=== PATIENT | female | born 1955 | race Caucasian/White ===

== ENCOUNTER 2017-11-26 21:57 | Observation (INO) | payer BC ==
[~2017-11-26] VITALS: Ht 175.3 cm; Wt 90.7 kg
[~2017-11-26 21:57] MED LIST: ATEN50TA PO; CALC600T10; CLON0.5T3 PO; DIAZ5TAB49; IBP200T; LEVO150T PO; LEVO250T11 PO; LOSA50TA36 PO; MULT1TAB63; PHEN-640 PO; PRAV20TA3 PO; TRIA1TAB PO
--- OUTSIDE RECORDS SUMMARY | 2017-11-26 22:03 | XMS REPORT ---
Author Author TAISHA COLLADO [facility] Address [address] [place] [address] Care Team Providers Care Chyron Operator Name Role Phone TAISHA COLLADO Unavailable PROBLEMS Type Condition ICD9-CM Code EQU50-VJ Code Onset Dates Condition Status SNOMED Code Problem Chronic right-sided low back pain with right-sided sciatica M54.41 Active 019558535 Problem Pain in right hand M79.641 Active 96619647 Problem Pain of left hand M79.642 Active 170430219969532 Problem Essential hypertension with goal blood pressure less than 130\/85 I10 Active 00499796 Problem Acquired hypothyroidism E03.9 Active 777352845 Problem History of bladder cancer Z85.51 Active 619674921 Problem Tobacco abuse Z72.0 Active 90760834 Problem Mixed hyperlipidemia E78.2 Active 306712036 Problem Anxiety F41.9 Active 53286112 ALLERGIES Unknown Allergies SOCIAL HISTORY No smoking Hx information available PLAN OF CARE VITAL SIGNS MEDICATIONS Unknown Medications RESULTS No Results PROCEDURES No Known procedures IMMUNIZATIONS No Known Immunizations
--- OUTSIDE RECORDS SUMMARY | 2017-11-26 22:03 | XMS REPORT ---
Author Author LAURE NIETO Organization [facility] Address [address] [place] [address] Care Team Providers Care Collections Manager Name Role Phone LAURE NIETO Unavailable PROBLEMS Type Condition ICD9-CM Code ANU20-UQ Code Onset Dates Condition Status SNOMED Code Problem Essential hypertension with goal blood pressure less than 130\/85 I10 Active 26117640 Problem Pain of left hand M79.642 Active 850098699598066 Problem Chronic right-sided low back pain with right-sided sciatica M54.41 Active 260765592 Problem Mixed hyperlipidemia E78.2 Active 724301538 Problem History of bladder cancer Z85.51 Active 183038883 Problem Essential hypertension I10 Active 61021216 Problem Chronic obstructive pulmonary disease with (acute) exacerbation J44.1 Active 769977713 Problem Anxiety F41.9 Active 05482238 Problem Acquired hypothyroidism E03.9 Active 869115398 Problem Pain in right hand M79.641 Active 98351039 Problem Tobacco abuse Z72.0 Active 66015858 ALLERGIES No Known Allergies SOCIAL HISTORY Never Assessed PLAN OF CARE Activity Details Follow Up [address] Nieto for BP f/u with labs Reason: VITAL SIGNS Height 69 in 2017-02-11 Weight 194.6 lbs 2017-02-11 Temperature 98.6 degrees Fahrenheit 2017-02-11 Heart Rate 66 bpm 2017-02-11 Respiratory Rate 18 2017-02-11 BMI 28.73 kg/m2 2017-02-11 Blood pressure systolic 126 mmHg 2017-02-11 Blood pressure diastolic 77 mmHg 2017-02-11 MEDICATIONS Medication Instructions Dosage Frequency Start Date End Date Duration Status Zofran ODT 4 MG Orally every 8 hrs prn 1 tablet on the tongue and allow to dissolve Jun, 03 days Active Pravastatin Sodium 40 mg Orally Once a day 1 tablet 24h Active Losartan Potassium 50 mg Orally 2 times a day 1 tablet 12h Active Ibuprofen 800 MG Orally Three times a day 1 tablet 8h Active Maxzide 75-50 MG Orally Once a day 1 tablet in the morning 24h Active Atenolol 50 mg Orally Once a day 1 tablet 24h Active Levothyroxine Sodium 150 MCG Orally Once a day- Must be seen, No further refills given 1 tablet Active RESULTS No Results PROCEDURES No Known procedures IMMUNIZATIONS No Known Immunizations MEDICAL (GENERAL) HISTORY Type Description Date Medical History HTN Medical History anxiety Medical History bladder cancer treated with surgery by Dr Burns Medical History Hypothyroidism Medical History Hyperlipidemia Surgical History tonsillectomy and adenoidectomy Surgical History appendectomy Surgical History tubal ligation Surgical History hysterectomy Surgical History bladder surgery--Tumor removal Hospitalization History Appendectomy Hospitalization History labor and delivery Hospitalization History Bladder tumor removal
--- OUTSIDE RECORDS SUMMARY | 2017-11-26 22:03 | XMS REPORT ---
Author Author TAISHA COLLADO [facility] Address [address] [place] [address] Care Team Providers Care Drugless Doctor Name Role Phone TAISHA COLLADO Unavailable PROBLEMS Type Condition ICD9-CM Code CRF79-LX Code Onset Dates Condition Status SNOMED Code Problem Chronic right-sided low back pain with right-sided sciatica M54.41 Active 761216658 Problem Pain in right hand M79.641 Active 05455275 Problem Pain of left hand M79.642 Active 245079685534305 Problem Essential hypertension with goal blood pressure less than 130\/85 I10 Active 60937860 Problem Acquired hypothyroidism E03.9 Active 823222077 Problem History of bladder cancer Z85.51 Active 126927426 Problem Tobacco abuse Z72.0 Active 09632399 Problem Mixed hyperlipidemia E78.2 Active 586980878 Problem Anxiety F41.9 Active 21681408 ALLERGIES Unknown Allergies SOCIAL HISTORY No smoking Hx information available PLAN OF CARE VITAL SIGNS MEDICATIONS Unknown Medications RESULTS No Results PROCEDURES No Known procedures IMMUNIZATIONS No Known Immunizations
--- OUTSIDE RECORDS SUMMARY | 2017-11-26 22:03 | XMS REPORT ---
Author Author TAISHA COLLADO Organization [employer] Address Unknown Phone Unavailable Care Team Providers Care Welding Machine Operator Electro Gas Name Role Phone TAISHA COLLADO CP Unavailable Allergies No Known Allergies Problems Problem Type Condition Code Onset Dates Condition Status Problem Pain of left hand M79.642 Active Problem Chronic right-sided low back pain with right-sided sciatica M54.41 Active Problem Acquired hypothyroidism E03.9 Active Problem Mixed hyperlipidemia E78.2 Active Problem Essential hypertension with goal blood pressure less than 130\/85 I10 Active Problem Tobacco abuse Z72.0 Active Problem Pain in right hand M79.641 Active Problem Anxiety F41.9 Active Problem History of bladder cancer Z85.51 Active Medications Medication Code System Code Instructions Start Date End Date Status Dosage Levothyroxine Sodium [facility] [address]-36 150 MCG Orally Once a day- Must be seen, No further refills given 1 tablet Results No Known Results Summary Purpose [employer] Submission
--- OUTSIDE RECORDS SUMMARY | 2017-11-26 22:03 | XMS REPORT ---
Author Author LAURE ABAD Organization [facility] Address [address] [place] [address] Care Team Providers Care Hogshead Stock Clerk Name Role Phone LAURE ABAD Unavailable PROBLEMS Type Condition ICD9-CM Code BUI85-UW Code Onset Dates Condition Status SNOMED Code Problem Essential hypertension with goal blood pressure less than 130\/85 I10 Active 43526706 Problem Pain of left hand M79.642 Active 987918862836185 Problem Chronic right-sided low back pain with right-sided sciatica M54.41 Active 508099009 Problem Mixed hyperlipidemia E78.2 Active 290015005 Problem History of bladder cancer Z85.51 Active 264837479 Problem Essential hypertension I10 Active 37861268 Problem Chronic obstructive pulmonary disease with (acute) exacerbation J44.1 Active 846887485 Problem Anxiety F41.9 Active 14743249 Problem Acquired hypothyroidism E03.9 Active 470597036 Problem Pain in right hand M79.641 Active 50890119 Problem Tobacco abuse Z72.0 Active 61533354 ALLERGIES No Information SOCIAL HISTORY Never Assessed PLAN OF CARE VITAL SIGNS MEDICATIONS Unknown [...]
--- OUTSIDE RECORDS SUMMARY | 2017-11-26 22:04 | XMS REPORT | Continuity of Care Document ---
Author Author [facility] Organization [facility] Address Unknown Phone Unavailable Allergies Active Description Code Type Severity Reaction Onset Reported/Identified Relationship to Patient Clinical Status Yes NKANo Known Allergies NKA Miscellaneous Allergy Unknown N/A 10/20/2006 Medications There is no data. Problems Date Dx Coded Attending Type Code Diagnosis Diagnosed By 11/15/2015 CORIE ZHAOVIKI Bermudez DOOR FRAME BUILDER Ot D18.03 11/15/2015 CECE, CORIEVIKI Bermudez DOOR FRAME BUILDER Ot N13.30 11/15/2015 CECE, KINGA Bermudez DOOR FRAME BUILDER Ot N32.9 11/15/2015 CECE, CORIEVIKI Bermudez DOOR FRAME BUILDER Ot D18.03 11/15/2015 CECE, KINGA Bermudez DOOR FRAME BUILDER Ot N13.30 11/15/2015 CECE, KINGA Bermudez DOOR FRAME BUILDER Ot N32.9 11/16/2015 CECE, KINGA Bermudez DOOR FRAME BUILDER Ot D18.03 11/16/2015 CECE, CORIEVIKI Bermudez DOOR FRAME BUILDER Ot N13.30 11/16/2015 CECE, CORIEVIKI Bermudez DOOR FRAME BUILDER Ot N32.9 11/16/2015 ELLIS VALLADARES, ERICK A Ot D41.4 11/16/2015 ELLIS VALLADARES, ERICK A Ot N13.5 11/17/2015 CECE, KINGA Lara DOOR FRAME BUILDER Ot D18.03 11/17/2015 CECE, KINGA Bermudez DOOR FRAME BUILDER Ot N13.30 11/17/2015 CECE, KINGA Bermudez DOOR FRAME BUILDER Ot N32.9 11/17/2015 ELLIS VALLADARES, ERICK A Ot D41.4 11/17/2015 ELLIS VALLADARES, ERICK A Ot N13.5 11/17/2015 ELLIS VALLADARES, ERICK A Ot Z01.810 11/17/2015 ELLIS VALLADARES, ERICK A Ot Z11.2 11/17/2015 CECE, KINGA Bermudez DOOR FRAME BUILDER Ot D18.03 11/17/2015 CECE, CORIEVIKI Bermudez DOOR FRAME BUILDER Ot N13.30 11/17/2015 KINGA ZHAO APRN Ot N32.9 11/17/2015 ELLIS VALLADARES, ERICK A Ot D41.4 11/17/2015 ELLIS VALLADARES, ERICK A Ot N13.5 11/17/2015 ELLIS VALLADARES, ERICK A Ot Z01.810 11/17/2015 ELLIS VALLADARES, ERICK A Ot Z11.2 11/23/2015 ELLIS VALLADARES, ERICK A Ot D41.4 11/23/2015 LELIS VALLADARES, ERICK A Ot N13.5 11/23/2015 ELLIS VALLADARES, ERICK A Ot Z01.810 11/23/2015 ELLIS VALLADARES, ERICK A Ot Z11.2 12/14/2015 ELLIS VALLADARES, ERICK A Ot D41.4 12/14/2015 ELLIS VALLADARES, ERICK A Ot N13.5 Procedures There is no data. Results Test Result Range Thyroid Stimulating Hormone - 08/13/16 09:00 TSH 1.84 mIU/mL 0.32-5.00 TSH+Free T4 - 01/15/17 13:00 TSH 0.608 uIU/mL 0.450-4.500 T4,Free(Direct) 1.80 ng/dL 0.82-1.77 CBC With Differential/Platelet - 01/15/17 13:00 WBC 6.2 x10E3/uL 3.4-10.8 RBC 4.43 x10E6/uL 3.77-5.28 Hemoglobin 13.0 g/dL 11.1-15.9 Hematocrit 39.6 % 34.0-46.6 MCV 89 fL 79-97 MCH 29.3 pg 26.6-33.0 MCHC 32.8 g/dL 31.5-35.7 RDW 15.3 % 12.3-15.4 Platelets 291 x10E3/uL 150-379 Neutrophils 65 % Lymphs 22 % Monocytes 9 % Eos 4 % Basos 0 % Neutrophils (Absolute) 4.0 x10E3/uL 1.4-7.0 Lymphs (Absolute) 1.3 x10E3/uL 0.7-3.1 Monocytes(Absolute) 0.5 x10E3/uL 0.1-0.9 Eos (Absolute) 0.3 x10E3/uL 0.0-0.4 Baso (Absolute) 0.0 x10E3/uL 0.0-0.2 Immature Granulocytes 0 % Immature Grans (Abs) 0.0 x10E3/uL 0.0-0.1 Comp. Metabolic Panel (14) - 01/15/17 13:00 Glucose, Serum 112 mg/dL 65-99 BUN 28 mg/dL 8-27 Creatinine, Serum 0.90 mg/dL 0.57-1.00 eGFR If NonAfricn Am 70 mL/min/1.73 >59 eGFR If Africn Am 80 mL/min/1.73 >59 BUN/Creatinine Ratio 31 12-28 Sodium, Serum 139 mmol/L 134-144 Potassium, Serum 5.0 mmol/L 3.5-5.2 Chloride, Serum 101 mmol/L 96-106 Carbon Dioxide, Total 22 mmol/L 18-29 Calcium, Serum 10.0 mg/dL 8.7-10.3 Protein, Total, Serum 6.2 g/dL 6.0-8.5 Albumin, Serum 4.4 g/dL 3.6-4.8 Globulin, Total 1.8 g/dL 1.5-4.5 A/G Ratio 2.4 1.2-2.2 Bilirubin, Total 0.2 mg/dL 0.0-1.2 Alkaline Phosphatase, S 79 IU/L 39-117 AST (SGOT) 22 IU/L 0-40 ALT (SGPT) 20 IU/L 0-32 Lipid Panel - 01/15/17 13:00 Cholesterol, Total 160 mg/dL 100-199 Triglycerides 116 mg/dL 0-149 HDL Cholesterol 60 mg/dL >39 VLDL Cholesterol Serafin 23 mg/dL 5-40 LDL Cholesterol Calc 77 mg/dL 0-99 Hemoglobin A1c - 01/15/17 13:00 Hemoglobin A1c 6.2 % 4.8-5.6 A1C - 10/28/17 17:01 HEMOGLOBIN A1c 5.8 % of total Hgb <5.7 Encounters ACCT No. Visit Date/Time Discharge Status Pt. Type Provider Facility Loc./Unit Complaint [id number] 03/18/2017 10:15:00 03/18/2017 23:59:59 CLS Preadmit LAURE ABAD MD [facility] RAD SCREENING [id number] 04/05/2016 11:11:00 04/05/2016 23:59:59 CLS Outpatient REINA CATHI GE [facility] QUICK [id number] 11/16/2015 06:10:00 11/16/2015 10:05:00 DIS [id number] 11/15/2015 14:36:00 11/15/2015 23:59:59 CLS Outpatient ERICK OCRRAL MD [facility] PREOP [id number] 11/08/2015 08:41:00 11/08/2015 23:59:59 CLS Outpatient KINGA ZHAO APRN [facility] RAD [id number] 10/28/2017 15:20:00 10/28/2017 23:59:59 CLS Outpatient LAURE ABAD [facility] [id number] 10/28/2017 15:20:00 Document Registration [id number] 01/16/2017 13:05:00 Document Registration [id number] 08/13/2016 09:42:00 08/13/2016 23:59:00 DIS Outpatient Yao Leung
--- OUTSIDE RECORDS SUMMARY | 2017-11-26 22:04 | XMS REPORT ---
Author Author TAISHA COLLADO [facility] Address [address] [place] [address] Care Team Providers Care Structural Shop Helper Name Role Phone TAISHA COLLADO Unavailable PROBLEMS Type Condition ICD9-CM Code ATP93-JB Code Onset Dates Condition Status SNOMED Code Problem Chronic right-sided low back pain with right-sided sciatica M54.41 Active 333809634 Problem Pain in right hand M79.641 Active 43799816 Problem Pain of left hand M79.642 Active 074697324398035 Problem Essential hypertension with goal blood pressure less than 130\/85 I10 Active 64818089 Problem Acquired hypothyroidism E03.9 Active 857839915 Problem History of bladder cancer Z85.51 Active 553977974 Problem Tobacco abuse Z72.0 Active 07204603 Problem Mixed hyperlipidemia E78.2 Active 783152480 Problem Anxiety F41.9 Active 05263912 ALLERGIES Unknown Allergies SOCIAL HISTORY No smoking Hx information available PLAN OF CARE VITAL SIGNS MEDICATIONS Medication Instructions Dosage Frequency Start Date End Date Duration Status Levothyroxine Sodium 150 MCG Orally Once a day MUST KEEP APPT ON 07/04/16 FOR FURTHER REFILLS 1 tablet Active RESULTS No Results PROCEDURES No Known procedures IMMUNIZATIONS No Known Immunizations
--- OUTSIDE RECORDS SUMMARY | 2017-11-26 22:04 | XMS REPORT ---
Author Author TAISHA COLLADO [facility] Address [address] [place] [address] Care Team Providers Care Heel Seat Trimmer Name Role Phone TAISHA COLLADO Unavailable PROBLEMS Type Condition ICD9-CM Code ELZ50-ST Code Onset Dates Condition Status SNOMED Code Problem Essential hypertension with goal blood pressure less than 130\/85 I10 Active 75916333 Problem Pain of left hand M79.642 Active 516900632888275 Problem Chronic right-sided low back pain with right-sided sciatica M54.41 Active 166406600 Problem Mixed hyperlipidemia E78.2 Active 392286588 Problem History of bladder cancer Z85.51 Active 128399966 Problem Essential hypertension I10 Active 37311623 Problem Chronic obstructive pulmonary disease with (acute) exacerbation J44.1 Active 010435649 Problem Anxiety F41.9 Active 93277024 Problem Acquired hypothyroidism E03.9 Active 576287979 Problem Pain in right hand M79.641 Active 32085885 Problem Tobacco abuse Z72.0 Active 02168453 ALLERGIES No Information SOCIAL HISTORY Never Assessed [...]
--- OUTSIDE RECORDS SUMMARY | 2017-11-26 22:04 | XMS REPORT ---
Author Author TAISHA COLLADO Organization [employer] Address Unknown Phone Unavailable Care Team Providers Care Riveter Portable Machine Name Role Phone TAISHA COLLADO CP Unavailable [...] History of bladder cancer Z85.51 Active Medications No Known Medications Results No Known Results Summary Purpose [employer] Submission
--- OUTSIDE RECORDS SUMMARY | 2017-11-26 22:04 | XMS REPORT ---
Author Author TAISHA COLLADO Organization [employer] Address Unknown Phone Unavailable Care Team Providers Care Manager School Name Role Phone TAISHA COLLADO CP Unavailable [...]
--- OUTSIDE RECORDS SUMMARY | 2017-11-26 22:04 | XMS REPORT ---
Author Author LAURE ABAD Organization [facility] Address [address] [place] [address] Care Team Providers Care Rn Staff Name Role Phone LAURE ABAD Unavailable PROBLEMS Type Condition ICD9-CM Code YBO98-JT Code Onset Dates Condition Status SNOMED Code Problem Essential hypertension with goal blood pressure less than 130\/85 I10 Active 32186950 Problem Pain of left hand M79.642 Active 219619213300595 Problem Chronic right-sided low back pain with right-sided sciatica M54.41 Active 722833663 Problem Mixed hyperlipidemia E78.2 Active 772542102 Problem History of bladder cancer Z85.51 Active 332234493 Problem Essential hypertension I10 Active 91332122 Problem Chronic obstructive pulmonary disease with (acute) exacerbation J44.1 Active 342615971 Problem Anxiety F41.9 Active 96904091 Problem Acquired hypothyroidism E03.9 Active 592834462 Problem Pain in right hand M79.641 Active 88995060 Problem Tobacco abuse Z72.0 Active 93370369 ALLERGIES No Information SOCIAL HISTORY Never Assessed PLAN OF CARE VITAL SIGNS MEDICATIONS Medication Instructions Dosage Frequency Start Date End Date Duration Status Losartan Potassium 50 mg Orally 2 times a day 1 tablet 12h Active Maxzide 75-50 MG Orally Once a day 1 tablet in the morning 24h Active Pravastatin Sodium 40 mg Orally Once a day 1 tablet 24h Active Levothyroxine Sodium 150 MCG Orally Once a day- Must be seen, No further refills given 1 tablet Active Atenolol 50 mg Orally Once a day 1 tablet 24h Active RESULTS No Results PROCEDURES No Known [...]
--- OUTSIDE RECORDS SUMMARY | 2017-11-26 22:04 | XMS REPORT ---
Author Author TAISHA COLLADO Organization [employer] Address Unknown Phone Unavailable Care Team Providers Care Reel System Operator Name Role Phone TAISHA COLLADO CP Unavailable [...]
--- OUTSIDE RECORDS SUMMARY | 2017-11-26 22:04 | XMS REPORT ---
Author Author ZORAN KU [facility] [employer] Address Unknown Phone Unavailable Care Team Providers Care Five Roll Refiner Batch Mixer Name Role Phone ZORAN KU CP Unavailable Allergies, Adverse Reactions, Alerts Substance Reaction Event Type N.K.D.A. Info Not Available Non Drug Allergy Problems Problem Type Condition Code Onset Dates Condition Status Assessment Gastroenteritis K52.9 Active Problem Pain of left hand M79.642 Active Problem Chronic right-sided low back pain with right-sided sciatica M54.41 Active Assessment Fever and chills R50.9 Active Problem Acquired hypothyroidism E03.9 Active Problem Mixed hyperlipidemia E78.2 Active Problem Essential hypertension with goal blood pressure less than 130\/85 I10 Active Problem Tobacco abuse Z72.0 Active Problem Pain in right hand M79.641 Active Problem Anxiety F41.9 Active Problem History of bladder cancer Z85.51 Active Medications Medication Code System Code Instructions Start Date End Date Status Dosage Ibuprofen [facility] [address]-23 800 MG Orally Three times a day 1 tablet Atenolol [facility] [address]-89 50 MG Orally Once a day 1 tablet Zofran ODT [facility] [address]-50 4 MG Orally every 8 hrs prn Jun 26, 2016 1 tablet on the tongue and allow to dissolve Pravastatin Sodium [facility] [address]-91 40 MG Orally Once a day 1 tablet Levothyroxine Sodium [facility] [address]-24 150 MCG Orally Once a day MUST KEEP APPT ON 07/04/16 FOR FURTHER REFILLS 1 [place] [address]-31 50 MG Orally 2 times a day 1 tablet Maxzide [facility] [address]-21 75-50 MG Orally Once a day 1 tablet in the morning Procedures Procedure Coding System Code Date URINALYSIS, AUTO, W/O SCOPE CPT-4 36199 Jun 26, 2016 Office Visit, Est Pt., Level 3 CPT-4 22562 Jun 26, 2016 INFLUENZA ASSAY W/OPTIC CPT-4 61018 Jun 26, 2016 Vital Signs Date/Time: Jun 26, 2016 Cardiac Monitoring Heart Rate 76 bpm Weight 198.2 lbs Height 69 in BMI 29.27 Index Blood Pressure Diastolic 60 mmHg Blood Pressure Systolic 102 mmHg Results Name Result Date Reference Range Unit Abnormality Flag INFLUENZA A & B (IN HOUSE) ----Exp date 2018-01-0420160626 ----INFLUENZA A Negative 20160626 ----INFLUENZA B Negative 20160626 ----Control + 20160626 ----Lot # [id number] UA LONG DIP (IN HOUSE) ----LORENZA negative 20160626 ----GLU negative 20160626 ----SG 1.020 20160626 ----KET negative 20160626 ----pH 6.0 20160626 ----Protein negative 20160626 ----BLO trace-intact 20160626 ----ELKE negative 20160626 ----Color dark yellow 20160626 ----Lot # [id number] ----Odor none 20160626 ----Exp date 20160626 ----URO 0.2 20160626 ----NIT negative 20160626 ----Clarity clear 20160626 ----Lot # [id number] ----Exp date 20160626 Summary Purpose [employer] Submission
[2017-11-26] MEDS ORDERED: LACTATED RINGERS 1,000 ML IV ONE (22:23)
--- NOTE | 2017-11-26 22:28 | ED Abdominal Pain ---
General Chief Complaint: -Female Stated Complaint: R SIDE PAIN, HARD TO WALK Source of Information: Patient Exam Limitations: No Limitations History of Present Illness Date Seen by Provider: Nov 26, 2017 Time Seen by Provider: 22:17 Initial Comments Patient presents to ER by private conveyance with chief complaint of right flank pain that does not radiate and started yesterday progressively getting worse, constant, feels like somebody is pushing and is very severe at times. She 's never had this pain before. No history of kidney stones. She says she's had no nausea vomiting fevers but she has had a few chills. She has sometimes had dysuria. She says the pain has gotten so bad she was not able to finish her shift. She has not taken any medications for it. He does have a history of hypothyroid, hypertension and hyperlipidemia. She denies any trauma. She says the pain is worse with movement or walking but is better if she stands still. Allergies and Home Medications Allergies Coded Allergies: Jordyn Known Allergies (Verified Allergy, Unknown, 10/20/06) Home Medications Atenolol 50 Mg Tablet, 50 MG PO HS, (Reported) Clonazepam 0.5 Mg Tablet, 0.5 MG PO BID PRN for ANXIETY, (Reported) Levofloxacin 250 Mg Tablet, 250 MG PO DAILY Prescribed by: FIDELIA VALLEJO on 11/16/15942 Levothyroxine Sodium 150 Mcg Tablet, 150 MCG PO DAILY, (Reported) Losartan Potassium 50 Mg Tablet, 50 MG PO BID, (Reported) Phenazopyridine HCl 200 Mg Tablet, 1 TAB PO TID PRN for PAIN Prescribed by: FIDELIA VALLEJO on 11/16/15942 Pravastatin Sodium 20 Mg Tablet, 20 MG PO HS, (Reported) Triamterene/Hydrochlorothiazid 1 Each Tablet, 1 EACH PO HS, (Reported) Patient Home Medication List Home Medication List Reviewed: Yes Review of Systems Constitutional: chills, No diaphoresis, No fever EENTM: No Blurred Vision, No Double Vision Respiratory: Denies Cough, Denies Shortness of Air Cardiovascular: Denies Chest Pain, Denies Edema, Denies Lightheadedness Gastrointestinal: See HPI, Denies Abdomen Distended, Abdominal Pain, Denies Constipated, Denies Diarrhea, Denies Nausea, Poor Appetite, Denies Poor Fluid Intake Genitourinary: Burning, Denies Discharge, Flank Pain, Denies Hematuria Musculoskeletal: No back pain, No joint pain Past Ftcwzpb-Wkvucy-Rdvodm Hx Patient Social History Alcohol Use: Occasionally Uses Number of Drinks Today: 2 Alcohol Beverage of Choice: Beer (2-3/week) Recreational Drug Use: Yes Drug of Choice: marijuana Smoking Status: Current Everyday Smoker Type Used: Cigarettes (0.25 ppd) Recent Foreign Travel: No Contact w/Someone Who Travel: No Immunizations Up To Date Date of Influenza Vaccine: Aug 09, 2015 Reproductive System Hx Reproductive Disorders: No Psychosocial Behavioral Health Disorders: Anxiety Physical Exam Vital Signs VS - Last 72 Hours, by Label 11/26/17 22:09 Temp 99.9 Pulse 79 Resp 20 B/P (MAP) 148/95 (112) Pulse Ox 95 O2 Delivery Room Air Capillary Refill : General Appearance: WD/WN, no apparent distress HEENT: PERRL/EOMI, normal ENT inspection, TMs normal, pharynx normal Respiratory: chest non-tender, lungs clear, normal breath sounds, no respiratory distress, no accessory muscle use Cardiovascular: normal peripheral pulses, no edema Peripheral Pulses: 2+ Dorsalis Pedis (R), 2+ Left Dors-Pedis (L) Gastrointestinal: normal bowel sounds, non tender, soft Extremities: no pedal edema, no calf tenderness, normal capillary refill Back: normal inspection, no CVA tenderness, no vertebral tenderness Neurologic/Psychiatric: alert, oriented x 3 Skin: normal color, warm/dry Progress/Results/Core Measures Results/Orders Lab Results Laboratory Tests Test 11/26/17 22:20 Range/Units White Blood Count 15.2 H 4.3-11.0 10^3/uL Red Blood Count 4.76 4.35-5.85 10^6/uL Hemoglobin 14.2 11.5-16.0 G/DL Hematocrit 44 35-52 % Mean Corpuscular Volume 91 80-99 FL Mean Corpuscular Hemoglobin 30 25-34 PG Mean Corpuscular Hemoglobin Concent 33 32-36 G/DL Red Cell Distribution Width 14.8 H 10.0-14.5 % Platelet Count 203 130-400 10^3/uL Mean Platelet Volume 11.2 H 7.4-10.4 FL Neutrophils (%) (Auto) 89 H 42-75 % Lymphocytes (%) (Auto) 7 L 12-44 % Monocytes (%) (Auto) 4 0-12 % Eosinophils (%) (Auto) 1 0-10 % Basophils (%) (Auto) 0 0-10 % Neutrophils # (Auto) 13.5 H 1.8-7.8 X 10^3 Lymphocytes # (Auto) 1.0 1.0-4.0 X 10^3 Monocytes # (Auto) 0.6 0.0-1.0 X 10^3 Eosinophils # (Auto) 0.1 0.0-0.3 10^3/uL Basophils # (Auto) 0.0 0.0-0.1 10^3/uL Neutrophils % (Manual) 74 % Lymphocytes % (Manual) 11 % Monocytes % (Manual) 2 % Eosinophils % (Manual) 1 % Basophils % (Manual) 0 % Band Neutrophils 12 % Blood Morphology Comment NORMAL Urine Color YELLOW Urine Clarity CLEAR Urine pH 6 5-9 Urine Specific [place] 1.015 L 1.016-1.022 Urine Protein 3+ H NEGATIVE Urine Glucose (UA) NEGATIVE NEGATIVE Urine Ketones NEGATIVE NEGATIVE Urine Nitrite POSITIVE H NEGATIVE Urine Bilirubin NEGATIVE NEGATIVE Urine Urobilinogen NORMAL NORMAL MG/DL Urine Leukocyte Esterase 3+ H NEGATIVE Urine RBC (Auto) 5+ H NEGATIVE Urine RBC 25-50 H /HPF Urine WBC TNTC H /HPF Urine Crystals NONE /LPF Urine Bacteria MODERATE H /HPF Urine Casts NONE /LPF Urine Mucus NEGATIVE /LPF Urine Culture Indicated YES Sodium Level 133 L 135-145 MMOL/L Potassium Level 3.8 3.6-5.0 MMOL/L Chloride Level 97 L 98-107 MMOL/L Carbon Dioxide Level 24 21-32 MMOL/L Anion Gap 12 5-14 MMOL/L Blood Urea Nitrogen 29 H 7-18 MG/DL Creatinine 1.16 0.60-1.30 MG/DL Estimat Glomerular Filtration Rate 48 BUN/Creatinine Ratio 25 Glucose Level 114 H 70-105 MG/DL Calcium Level 10.2 H 8.5-10.1 MG/DL Total Bilirubin 0.8 0.1-1.0 MG/DL Aspartate Amino Transf (AST/SGOT) 21 5-34 U/L Alanine Aminotransferase (ALT/SGPT) 19 0-55 U/L Alkaline Phosphatase 67 40-136 U/L Total Protein 8.1 6.4-8.2 GM/DL Albumin 4.6 H 3.2-4.5 GM/DL My Orders Orders - CRISTIN,SEFERINO J Cbc With Automated Diff (11/26/17 22:23) Comprehensive Metabolic Panel (11/26/17 22:23) Ua Culture If Indicated (11/26/17 22:23) Saline Lock/Iv-Start (11/26/17 22:23) Lactated Ringers (Lr 1000 Ml Iv Solution (11/26/17 22:23) Ketorolac Injection (Toradol Injection) (11/26/17 22:30) Manual Differential (11/26/17 22:20) Urine Culture (11/26/17 22:20) Ct Abd/Pelvis Wo(Kidney Stone) (11/26/17 22:38) Ceftriaxone Injection (Rocephin Injectio (11/26/17 22:45) Medications Given in ED Current Medications Medications Dose Ordered Sig/Alex Route Start Time Stop Time Status Last Admin Dose Admin Ceftriaxone Sodium 1000 mg/ Sodium Chloride 100 ml @ 200 mls/hr ONCE ONCE IV 11/26/17 22:45 11/26/17 23:14 DC 11/26/17 23:01 200 MLS/HR Ketorolac Tromethamine 15 mg ONCE ONCE IVP 11/26/17 22:30 11/26/17 22:31 DC 11/26/17 22:34 15 MG Lactated Ringer's 1,000 ml @ 0 mls/hr Q0M ONCE IV 11/26/17 22:23 11/26/17 22:25 DC 11/26/17 22:34 1,000 MLS/HR Vital Signs/I&O Vital Sign - Last 12Hours 11/26/17 22:09 Temp 99.9 Pulse 79 Resp 20 B/P (MAP) 148/95 (112) Pulse Ox 95 O2 Delivery Room Air Intake and Output 11/27/17 00:00 Intake Total 1100 ml Balance 1100 ml Progress Note : Time: 22:28 Progress Note Kidney stone versus other intra-abdominal pathology. We'll get a urinalysis and if we see any evidence of a kidney stone we'll do a CT. Ketorolac for her pain. She's not having any nausea presently. We'll give her fluids that she's had decreased oral intake. Diagnostic Imaging Diagonstic Imaging: CT (c/o) Plain Films/CT/US/NM/MRI: abdomen, pelvis Comments Mild right head or ureter nephrosis without evidence of stone. Mild right perinephric and periureteral stranding. [place] evaluation for recurrent bladder cancer limited without IV contrast. Severe atrophy of the left kidney, severe left hydronephrosis and mild left hydroureter with focal cut off in the pelvis. Reviewed: Reviewed [place] Study (stat rad), Reviewed by Me Departure Communication (Admissions) Time/Spoke to Admitting Phy: 23:[address] Merritt: Discussed case lab imaging findings and history of only having one kidney and she agrees with holding the patient for Rocephin for pyelonephritis. Impression Impression: Primary Impression: Pyelonephritis Additional Impression: Atrophy of left kidney Disposition: ADMITTED INPATIENT Condition: Stable Admissions Decision to Admit Reason: Admit from ER (General) Decision to Admit/Date: Nov 26, 2017 Time/Decision to Admit Time: 23:57 Departure-Patient Inst. Referrals: LAURE ABAD MD (PCP/Family) Primary Care Physician Copy Copies To 1: CHINMAY DIAZ TITUS J Nov 26, 2017 22:28
[2017-11-26 22:30] LABS: BILIRUBIN,URINE NEGATIVE (NEGATIVE); CLARITY,URINE CLEAR; COLOR,URINE YELLOW; GLUCOSE, URINE (UA) NEGATIVE (NEGATIVE); KETONES,URINE NEGATIVE (NEGATIVE); LEUKOCYTE ESTERASE ,URINE 3+ (NEGATIVE); NITRITE,URINE POSITIVE (NEGATIVE); PH,URINE 6 (5-9); PROTEIN,URINE 3+ (NEGATIVE); UROBILINOGEN,URINE NORMAL (NORMAL)
[2017-11-26] MEDS ORDERED: KETOROLAC 30 MG/ML VIAL IVP ONE (22:30)
[2017-11-26 22:31] LABS: BASOPHILS % (AUTO) 0 % (0-10); EOSINOPHILS # (AUTO) 0.1 10^3/uL (0.0-0.3); EOSINOPHILS % (AUTO) 1 % (0-10); HEMATOCRIT 44 % (35-52); HEMOGLOBIN 14.2 G/DL (11.5-16.0); LYMPHOCYTES % (AUTO) 7 % (12-44); MEAN CORPUSCULAR HEMOGLOBIN 30 PG (25-34); MEAN CORPUSCULAR HGB CONC 33 G/DL (32-36); MEAN CORPUSCULAR VOLUME 91 FL (80-99); MEAN PLATELET VOLUME 11.2 FL (7.4-10.4); MONOCYTES # (AUTO) 0.6 X 10^3 (0.0-1.0); MONOCYTES % (AUTO) 4 % (0-12); NEUTROPHILS # (AUTO) 13.5 X 10^3 (1.8-7.8); NEUTROPHILS % (AUTO) 89 % (42-75); PLATELET COUNT 203 10^3/uL (130-400); RED BLOOD COUNT 4.76 10^6/uL (4.35-5.85); RED CELL DISTRIBUTION WIDTH 14.8 % (10.0-14.5); WHITE BLOOD COUNT 15.2 10^3/uL (4.3-11.0)
[2017-11-26 22:36] LABS: BACTERIA,URINE MODERATE /HPF; RBC,URINE 25-50 /HPF; WBC,URINE TNTC /HPF
[2017-11-26] MEDS ORDERED: cefTRIAXone INJECTION 1,000 MG in NS (IVPB) 100 ML IV ONE (22:45)
[2017-11-26 22:47] LABS: ALBUMIN 4.6 GM/DL (3.2-4.5); BILIRUBIN,TOTAL 0.8 MG/DL (0.1-1.0); CALCIUM 10.2 MG/DL (8.5-10.1); CREATININE SERUM 1.16 MG/DL (0.60-1.30); POTASSIUM 3.8 MMOL/L (3.6-5.0); TOTAL PROTEIN 8.1 GM/DL (6.4-8.2)
[2017-11-26 22:56] LABS: BAND NEUTROPHILS 12 %; BASOPHILS % (MANUAL) 0 %; EOSINOPHILS % (MANUAL) 1 %; LYMPHOCYTES % (MANUAL) 11 %; MONOCYTES % (MANUAL) 2 %; NEUTROPHILS % (MANUAL) 74 %; RBC MORPH NORMAL
[2017-11-27] VITALS (7 sets, daily range): BP systolic 104–137; BP diastolic 51–68
--- OUTSIDE RECORDS SUMMARY | 2017-11-27 00:17 | XMS REPORT | Continuity of Care Document ---
Author Author [facility] Organization [facility] Address Unknown Phone Unavailable Allergies Active Description Code Type Severity Reaction Onset Reported/Identified Relationship to Patient Clinical Status Yes NKANo Known Allergies NKA Miscellaneous Allergy Unknown N/A 10/20/2006 Medications There is no data. Problems Date Dx Coded Attending Type Code Diagnosis Diagnosed By 11/15/2015 CORIE ZHAOVIKI Bermudez JAIL KEEPER Ot D18.03 11/15/2015 CECE, CORIEVIKI Bermudez JAIL KEEPER Ot N13.30 11/15/2015 CECE, KINGA Bermudez JAIL KEEPER Ot N32.9 11/15/2015 CECE, CORIEVIKI Bermudez JAIL KEEPER Ot D18.03 11/15/2015 CECE, KINGA Bermudez JAIL KEEPER Ot N13.30 11/15/2015 CECE, KINGA Bermudez JAIL KEEPER Ot N32.9 11/16/2015 CECE, KINGA Bermudez JAIL KEEPER Ot D18.03 11/16/2015 CECE, CORIEVIKI Bermudez JAIL KEEPER Ot N13.30 11/16/2015 CECE, CORIEVIKI Bermudez JAIL KEEPER Ot N32.9 11/16/2015 ELLIS VALLADARES, ERICK A Ot D41.4 11/16/2015 ELLIS VALLADARES, ERICK A Ot N13.5 11/17/2015 CECE, KINGA Lara JAIL KEEPER Ot D18.03 11/17/2015 CECE, KINGA Bermudez JAIL KEEPER Ot N13.30 11/17/2015 CECE, KINGA Bermudez JAIL KEEPER Ot N32.9 11/17/2015 ELLIS VALLADARES, ERICK A Ot D41.4 11/17/2015 ELLIS VALLADARES, ERICK A Ot N13.5 11/17/2015 ELLIS VALLADARES, ERICK A Ot Z01.810 11/17/2015 ELLIS VALLADARES, ERICK A Ot Z11.2 11/17/2015 CECE, KINGA Bermudez JAIL KEEPER Ot D18.03 11/17/2015 CECE, CORIEVIKI Bermudez JAIL KEEPER Ot N13.30 11/17/2015 KINGA ZHAO APRN Ot N32.9 11/17/2015 ELLIS VALLADARES, ERICK A Ot D41.4 11/17/2015 ELLIS VALLADARES, ERICK A Ot N13.5 11/17/2015 ELLIS VALLADARES, ERICK A Ot Z01.810 11/17/2015 ELLIS VALLADARES, ERICK A Ot Z11.2 11/23/2015 ELLIS VALLADARES, ERICK A Ot D41.4 11/23/2015 ELLIS VALLADARES, ERICK A Ot N13.5 11/23/2015 ELLIS [...] A1c 5.8 % of total Hgb <5.7 Complete blood count (CBC) with automated white blood cell (WBC) differential - 11/26/17 22:20 Blood leukocytes automated count (number/volume) 15.2 10*3/uL 4.3-11.0 Blood erythrocytes automated count (number/volume) 4.76 10*6/uL 4.35-5.85 Venous blood hemoglobin measurement (mass/volume) 14.2 g/dL 11.5-16.0 Blood hematocrit (volume fraction) 44 % 35-52 Automated erythrocyte mean corpuscular volume 91 [foz_us] 80-99 Automated erythrocyte mean corpuscular hemoglobin (mass per erythrocyte) 30 pg 25-34 Automated erythrocyte mean corpuscular hemoglobin concentration measurement ( mass/volume) 33 g/dL 32-36 Automated erythrocyte distribution width ratio 14.8 % 10.0-14.5 Automated blood platelet count (count/volume) 203 10*3/uL 130-400 Automated blood platelet mean volume measurement 11.2 [foz_us] 7.4-10.4 Automated blood neutrophils/100 leukocytes 89 % 42-75 Automated blood lymphocytes/100 leukocytes 7 % 12-44 Blood monocytes/100 leukocytes 4 % 0-12 Automated blood eosinophils/100 leukocytes 1 % 0-10 Automated blood basophils/100 leukocytes 0 % 0-10 Blood neutrophils automated count (number/volume) 13.5 10*3 1.8-7.8 Blood lymphocytes automated count (number/volume) 1.0 10*3 1.0-4.0 Blood monocytes automated count (number/volume) 0.6 10*3 0.0-1.0 Automated eosinophil count 0.1 10*3/uL 0.0-0.3 Automated blood basophil count (count/volume) 0.0 10*3/uL 0.0-0.1 Complete urinalysis with reflex to culture - 11/26/17 22:20 Urine color determination YELLOW NRG Urine clarity determination CLEAR NRG Urine pH measurement by test strip 6 5-9 Specific gravity of urine by test strip 1.015 1.016- 1.022 Urine protein assay by test strip, semi-quantitative 3+ NEGATIVE Urine glucose detection by automated test strip NEGATIVE NEGATIVE Erythrocytes detection in urine sediment by light microscopy 5+ NEGATIVE Urine ketones detection by automated test strip NEGATIVE NEGATIVE Urine nitrite detection by test strip POSITIVE NEGATIVE Urine total bilirubin detection by test strip NEGATIVE NEGATIVE Urine urobilinogen measurement by automated test strip (mass/volume) NORMAL NORMAL Urine leukocyte esterase detection by dipstick 3+ NEGATIVE Automated urine sediment erythrocyte count by microscopy (number/high power field) [HPF] NRG Automated urine sediment leukocyte count by microscopy (number/high power field ) TNTC NRG Bacteria detection in urine sediment by light microscopy MODERATE NRG Crystals detection in urine sediment by light microscopy NONE NRG Casts detection in urine sediment by light microscopy NONE NRG Mucus detection in urine sediment by light microscopy NEGATIVE NRG Complete urinalysis with reflex to culture YES NRG Comprehensive metabolic panel - 11/26/17 22:20 Serum or plasma sodium measurement (moles/volume) 133 mmol/L 135-145 Serum or plasma potassium measurement (moles/volume) 3.8 mmol/L 3.6-5.0 Serum or plasma chloride measurement (moles/volume) 97 mmol/L 98-107 Carbon dioxide 24 mmol/L 21-32 Serum or plasma anion gap determination (moles/volume) 12 mmol/L 5-14 Serum or plasma urea nitrogen measurement (mass/volume) 29 mg/dL 7-18 Serum or plasma creatinine measurement (mass/volume) 1.16 mg/dL 0.60-1.30 Serum or plasma urea nitrogen/creatinine mass ratio 25 NRG Serum or plasma creatinine measurement with calculation of estimated glomerular filtration rate 48 NRG Serum or plasma glucose measurement (mass/volume) 114 mg/dL 70-105 Serum or plasma calcium measurement (mass/volume) 10.2 mg/dL 8.5-10.1 Serum or plasma total bilirubin measurement (mass/volume) 0.8 mg/dL 0.1-1.0 Serum or plasma alkaline phosphatase measurement (enzymatic activity/volume) 67 U/L 40-136 Serum or plasma aspartate aminotransferase measurement (enzymatic activity/ volume) 21 U/L 5-34 Serum or plasma alanine aminotransferase measurement (enzymatic activity/volume ) 19 U/L 0-55 Serum or plasma protein measurement (mass/volume) 8.1 g/dL 6.4-8.2 Serum or plasma albumin measurement (mass/volume) 4.6 g/dL 3.2-4.5 Blood manual differential performed detection - 11/26/17 22:20 Blood monocytes/100 leukocytes 2 % NRG Manual blood segmented neutrophils/100 leukocytes 74 % NRG Blood band neutrophils/100 leukocytes 12 % NRG Manual blood lymphocytes/100 leukocytes 11 % NRG Manual eosinophils/100 leukocytes in nose 1 % NRG Manual blood basophils/100 leukocytes 0 % NRG Blood erythrocyte morphology finding identification NORMAL NRG Encounters ACCT No. Visit Date/Time Discharge Status Pt. Type Provider Facility Loc./Unit Complaint [id number] 03/18/2017 10:15:00 03/18/2017 23:59:59 CLS Preadmit GAULT MD, LAURE R [facility] RAD SCREENING [id number] 04/05/2016 11:11:00 04/05/2016 23:59:59 CLS Outpatient REINA JOO CATHI KYLE [facility] QUICK [id number] 11/16/2015 06:10:00 11/16/2015 10:05:00 DIS Outpatient ERICK CORRAL MD [facility] SDC [id number] 11/15/2015 14:36:00 11/15/2015 23:59:59 CLS Outpatient ERICK CORRAL MD [facility] PREOP [id number] 11/08/2015 08:41:00 11/08/2015 23:59:59 CLS Outpatient KINGA ZHAO APRN [facility] RAD [id number] 11/26/2017 22:31:00 Document Registration [id number] 10/28/2017 15:20:00 10/28/2017 23:59:59 CLS Outpatient LAURE ABAD [facility] [id number] 10/28/2017 15:20:00 Document Registration [id number] 01/16/2017 13:05:00 Document Registration [id number] 08/13/2016 09:42:00 08/13/2016 23:59:00 DIS Outpatient Yao Leung
[2017-11-27] MEDS ORDERED: CATHETER FLUSH 10 ML SYR IV PRN (01:00)
[2017-11-27] MEDS ORDERED: ONDANSETRON 4 MG/2 ML (SDV) Z0FRAN IV PRN (01:00)
[2017-11-27] MEDS: NS W/KCL 20 MEQ/L 1,000 ML IV SCH ×3 (01:15→22:47)
[2017-11-27] MEDS: fentaNYL INJECTION 100 MCG/2 ML AMP IV PRN ×4 (01:15→18:38)
[2017-11-27] MEDS: ACETAMINOPHEN 500 MG TAB (TYLENOL) PO PRN ×3 (01:15→20:09)
[2017-11-27] MEDS: CATHETER FLUSH 10 ML SYR IV SCH ×3 (05:52→20:10)
[2017-11-27 05:58] LABS: BASOPHILS % (AUTO) 0 % (0-10); EOSINOPHILS % (AUTO) 0 % (0-10); HEMATOCRIT 39 % (35-52); HEMOGLOBIN 12.9 G/DL (11.5-16.0); LYMPHOCYTES # (AUTO) 0.4 X 10^3 (1.0-4.0); LYMPHOCYTES % (AUTO) 3 % (12-44); MEAN CORPUSCULAR HEMOGLOBIN 30 PG (25-34); MEAN CORPUSCULAR HGB CONC 33 G/DL (32-36); MEAN CORPUSCULAR VOLUME 91 FL (80-99); MEAN PLATELET VOLUME 11.5 FL (7.4-10.4); MONOCYTES # (AUTO) 0.7 X 10^3 (0.0-1.0); MONOCYTES % (AUTO) 6 % (0-12); NEUTROPHILS % (AUTO) 91 % (42-75); PLATELET COUNT 156 10^3/uL (130-400); RED CELL DISTRIBUTION WIDTH 14.6 % (10.0-14.5); WHITE BLOOD COUNT 12.1 10^3/uL (4.3-11.0)
--- NOTE | 2017-11-27 05:59 | Diagnostic Imaging Report ---
Indication: Shortness of breath Portable chest 2:35 AM Heart size and pulmonary vascular normal. Lungs are clear. There are no effusions or pneumothoraces. Impression: Negative chest Dictated by: Dictated on workstation # [id number]
[2017-11-27 06:22] LABS: ALBUMIN 3.7 GM/DL (3.2-4.5); BILIRUBIN,TOTAL 0.8 MG/DL (0.1-1.0); CALCIUM 9.3 MG/DL (8.5-10.1); CREATININE SERUM 1.2 MG/DL (0.60-1.30); POTASSIUM 3.1 MMOL/L (3.6-5.0); TOTAL PROTEIN 6.5 GM/DL (6.4-8.2)
[2017-11-27] MEDS ORDERED: INFLUENZA TRIvalent 2017-2018 0.5 ML/45 MCG SYR IM ONE (07:30)
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
[2017-11-27] MEDS ORDERED: KCL 20 MEQ TAB (K-DUR) PO NR (08:00)
[2017-11-27] MEDS ORDERED: LEVO150T6 PO (08:02)
[2017-11-27] MEDS ORDERED: ACET1TAB43 PO (08:02)
[2017-11-27] MEDS ORDERED: PRAV40TA2 PO (08:02)
[2017-11-27] MEDS ORDERED: TRIA1TAB5 PO (08:02)
--- NOTE | 2017-11-27 08:27 | Diagnostic Imaging Report ---
PROCEDURE: CT urinary tract, rule out kidney stone. TECHNIQUE: Multiple contiguous axial images were obtained through the abdomen and pelvis without the use of intravenous contrast. INDICATION: Right flank pain and painful urination. Comparison is made with prior CT from 11/08/2015. Imaging through the lung bases demonstrates minimal atelectasis or scarring in the lingula. Otherwise the lung bases are clear. Previously noted liver hemangiomas are not as well seen on noncontrast imaging. The gallbladder is unremarkable. The pancreas is unremarkable. Spleen contains calcified granulomas. No adrenal mass is identified. Marked atrophy of the left kidney with hydroureteronephrosis again noted and similar to the prior exam. There has been some increase in hydroureteronephrosis on the right. No calculi are detected. Previously noted left UVJ bladder mass is not well seen on today's study due to absence of intravenous contrast. The aorta is heavily calcified nonaneurysmal. No central retroperitoneal or mesenteric lymphadenopathy is detected. Small and large bowel loops are of normal caliber. There is no ascites. Mild sigmoid diverticulosis is seen without evidence of acute diverticulitis. Lower lumbar facet arthropathy is identified. IMPRESSION: 1. Mild increase in the right hydroureteronephrosis when compared with the prior CT from 11/08/2015. No calculi are detected. 2. Atrophic left kidney with continued left hydroureteronephrosis. Previously noted mass near the left UVJ is not appreciated on today's exam. 3. Uncomplicated sigmoid diverticulosis. Dictated by: Dictated on workstation # [id number]
[2017-11-27] MEDS ORDERED: IBUP200C11 PO (08:32)
[2017-11-27] MEDS: TRIAMTERENE/HCTZ 75-50 (MAXZIDE,DYAZIDE) TABLET PO SCH (16:13)
[2017-11-27] MEDS: LOSARTAN 50 MG (COZAAR) TAB PO SCH (20:09)
[2017-11-27] MEDS: ATENOLOL 50 MG (TENORMIN) TAB PO SCH (20:09)
[2017-11-27] MEDS: SIMvastatin 20 MG (ZOCOR) TAB PO SCH (20:09)
[2017-11-27] MEDS: KETOROLAC 30 MG/ML VIAL IVP PRN (20:09)
[2017-11-27] MEDS: cefTRIAXone 1 GM/NS 100 ML IVPB IV SCH ×2 (20:10)
[2017-11-28] MEDS: fentaNYL INJECTION 100 MCG/2 ML AMP IV PRN ×6 (02:42→21:12)
[2017-11-28 04:00] VITALS: BP 130/60
[2017-11-28] MEDS: CATHETER FLUSH 10 ML SYR IV SCH ×3 (05:28→21:04)
[2017-11-28] MEDS: KETOROLAC 30 MG/ML VIAL IVP PRN ×2 (05:34→16:36)
[2017-11-28] MEDS: LEVOTHYROXINE 150 MCG (LEVOTHROID) TAB PO SCH (05:34)
[2017-11-28 06:38] LABS: BASOPHILS % (AUTO) 0 % (0-10); EOSINOPHILS # (AUTO) 0.2 10^3/uL (0.0-0.3); EOSINOPHILS % (AUTO) 1 % (0-10); HEMATOCRIT 39 % (35-52); HEMOGLOBIN 12.9 G/DL (11.5-16.0); LYMPHOCYTES # (AUTO) 0.8 X 10^3 (1.0-4.0); LYMPHOCYTES % (AUTO) 5 % (12-44); MEAN CORPUSCULAR HEMOGLOBIN 30 PG (25-34); MEAN CORPUSCULAR HGB CONC 33 G/DL (32-36); MEAN CORPUSCULAR VOLUME 91 FL (80-99); MEAN PLATELET VOLUME 11.9 FL (7.4-10.4); MONOCYTES % (AUTO) 7 % (0-12); NEUTROPHILS # (AUTO) 13.2 X 10^3 (1.8-7.8); NEUTROPHILS % (AUTO) 87 % (42-75); PLATELET COUNT 169 10^3/uL (130-400); RED BLOOD COUNT 4.32 10^6/uL (4.35-5.85); RED CELL DISTRIBUTION WIDTH 14.8 % (10.0-14.5); WHITE BLOOD COUNT 15.2 10^3/uL (4.3-11.0)
[2017-11-28 07:05] LABS: CALCIUM 9.5 MG/DL (8.5-10.1); CREATININE SERUM 1.09 MG/DL (0.60-1.30); POTASSIUM 4.2 MMOL/L (3.6-5.0)
[2017-11-28] MEDS: ACETAMINOPHEN 500 MG TAB (TYLENOL) PO PRN ×2 (07:44→15:52)
[2017-11-28] MEDS: NS W/KCL 20 MEQ/L 1,000 ML IV SCH ×2 (07:44→18:57)
[2017-11-28 08:00] VITALS: BP 157/76
[2017-11-28 12:00] VITALS: BP 130/69
[2017-11-28 16:30] VITALS: BP 164/92
[2017-11-28] MEDS: TRIAMTERENE/HCTZ 75-50 (MAXZIDE,DYAZIDE) TABLET PO SCH (16:36)
[2017-11-28 20:54] VITALS: BP 179/85
[2017-11-28] MEDS: ATENOLOL 50 MG (TENORMIN) TAB PO SCH (21:04)
[2017-11-28] MEDS: cefTRIAXone 1 GM/NS 100 ML IVPB IV SCH ×2 (21:04)
[2017-11-28] MEDS: SIMvastatin 20 MG (ZOCOR) TAB PO SCH (21:04)
[2017-11-28] MEDS: LOSARTAN 50 MG (COZAAR) TAB PO SCH (21:04)
[2017-11-29] VITALS: BP 150/76
[2017-11-29] MEDS: fentaNYL INJECTION 100 MCG/2 ML AMP IV PRN ×7 (00:15→21:25)
[2017-11-29 04:00] VITALS: BP 150/71
[2017-11-29] MEDS: ACETAMINOPHEN 500 MG TAB (TYLENOL) PO PRN ×2 (04:20→11:34)
[2017-11-29] MEDS: KETOROLAC 30 MG/ML VIAL IVP PRN (05:31)
[2017-11-29 05:44] LABS: BASOPHILS % (AUTO) 0 % (0-10); EOSINOPHILS # (AUTO) 0.2 10^3/uL (0.0-0.3); EOSINOPHILS % (AUTO) 2 % (0-10); HEMATOCRIT 35 % (35-52); HEMOGLOBIN 11.8 G/DL (11.5-16.0); LYMPHOCYTES # (AUTO) 0.9 X 10^3 (1.0-4.0); LYMPHOCYTES % (AUTO) 8 % (12-44); MEAN CORPUSCULAR HEMOGLOBIN 30 PG (25-34); MEAN CORPUSCULAR HGB CONC 34 G/DL (32-36); MEAN CORPUSCULAR VOLUME 90 FL (80-99); MEAN PLATELET VOLUME 11.5 FL (7.4-10.4); MONOCYTES # (AUTO) 0.9 X 10^3 (0.0-1.0); MONOCYTES % (AUTO) 8 % (0-12); NEUTROPHILS % (AUTO) 82 % (42-75); PLATELET COUNT 185 10^3/uL (130-400); RED BLOOD COUNT 3.89 10^6/uL (4.35-5.85); RED CELL DISTRIBUTION WIDTH 14.5 % (10.0-14.5)
[2017-11-29] MEDS: NS W/KCL 20 MEQ/L 1,000 ML IV SCH ×2 (05:50→15:56)
[2017-11-29] MEDS: CATHETER FLUSH 10 ML SYR IV SCH ×3 (05:53→21:25)
[2017-11-29 06:05] LABS: BUN/CREATININE RATIO 20; CALCIUM 9.2 MG/DL (8.5-10.1); CARBON DIOXIDE 20 MMOL/L (21-32); CHLORIDE 108 MMOL/L (98-107); CREATININE SERUM 0.84 MG/DL (0.60-1.30); GFR ESTIMATED > 60; GLUCOSE 130 MG/DL (70-105); MAGNESIUM 1.9 MG/DL (1.8-2.4); POTASSIUM 4.3 MMOL/L (3.6-5.0); SODIUM 135 MMOL/L (135-145)
[2017-11-29 08:00] VITALS: BP 150/80
--- NOTE | 2017-11-29 08:26 | Progress Note (SOAP) ---
Subjective Subjective/Events-last exam Pt reports that she still has some right sided CVA tenderness, but she feels like the fentanyl is causing her a headache. She would like to try hydrocodone and see if that works better. Overnight had Tmax of 102.1. Review of Systems Date Seen by Provider: Nov 29, 2017 Time Seen by Provider: 14:19 General: Chills, No Night Sweats, No Fatigue HEENT: Head Aches (when fentanyl given), No Eye Pain, No Dysphasia Pulmonary: No Dyspnea, No Cough Cardiovascular: No: Chest Pain, Palpitations, Edema Gastrointestinal: No: Nausea, Vomiting Genitourinary: No Dysuria, No Incontinence Musculoskeletal: back pain, No: neck pain Neurological: No: Weakness, Numbness, Incoordination, Change in speech, Confusion, Seizures Objective Exam Last Set of Vital Signs Vital Signs Date Time Temp Pulse Resp B/P (MAP) Pulse Ox O2 Delivery O2 Flow Rate FiO2 11/29/17 04:00 99.3 94 16 150/71 (97) 95 Room Air 11/27/17 06:49 2.00 Capillary Refill : Less Than 3 Seconds I&O Intake and Output 11/29/17 00:00 Intake Total 3720 ml Output Total 500 ml Balance 3220 ml Intake Oral 2720 ml IV Total 1000 ml Output Urine Total 500 ml # Voids 14 # Bowel Movements 6 General: Alert, Oriented X3, Cooperative, No Acute Distress HEENT: Atraumatic, EOMI, Mucous Memb Moist/[place] Neck: Supple, No Thyromegaly Lungs: Clear to Auscultation, Normal Air Movement Heart: Regular Rate, Normal S1, Normal S2, No Murmurs Abdomen: Normal Bowel Sounds, Soft, No Tenderness, No Hepatosplenomegaly Extremities: No Clubbing, No Cyanosis, No Edema Skin: No Rashes, No Significant Lesion Neuro: Normal Speech, Normal Tone, Sensation Intact Psych/Mental Status: Mental Status NL, Mood NL Results/Procedures Lab Laboratory Tests 11/29/17 05:05: White Blood Count 11.0, Red Blood Count 3.89L, Hemoglobin 11.8, Hematocrit 35, Mean Corpuscular Volume 90, Mean Corpuscular Hemoglobin 30, Mean Corpuscular Hemoglobin Concent 34, Red Cell Distribution Width 14.5, Platelet Count 185, Mean Platelet Volume 11.5H, Neutrophils (%) (Auto) 82H, Lymphocytes (%) (Auto) 8L, Monocytes (%) (Auto) 8, Eosinophils (%) (Auto) 2, Basophils (%) (Auto) 0, Neutrophils # (Auto) 9.0H, Lymphocytes # (Auto) 0.9L, Monocytes # (Auto) 0.9, Eosinophils # (Auto) 0.2, Basophils # (Auto) 0.0, Sodium Level 135, Potassium Level 4.3, Chloride Level 108H, Carbon Dioxide Level 20L, Anion Gap 7, Blood Urea Nitrogen 17, Creatinine 0.84, Estimat Glomerular Filtration Rate > 60, BUN/ Creatinine Ratio 20, Glucose Level 130H, Calcium Level 9.2, Magnesium Level 1.9 , C-Reactive Protein High Sensitivity 13.26H Microbiology 11/26/17 Urine Culture - Final, Complete Escherichia coli Radiology CXR - negative chest CT Abd/Pelvis reviewed, radiology read pending Assessment/Plan Assessment/Plan Admission Dx see below Admission Status: Inpatient Order (span 2 midnights) Reason for Inpatient Admission: febrile overnight, continued need for IV abx Assessment & Plan Pyelonephritis -started on Rocephin, will receive second dose tonight -febrile overnight -renal function holding at the upper normal limit -will continue IV antibiotics for now and see how patient is doing in the AM -in order for discharge, she will need to demonstrate ability to tolerate good PO intake, remain afebrile for 24 hours, and show preserved renal function -recheck labs in AM 11/28 -pt febrile overnight -given that pt now has fever with tachycardia, elevated CRP and WBC and known UTI, does meet sepsis criteria -ADDED DIAGNOSIS: SEPSIS SECONDARY TO PYELONEPHRITIS -continue Rocephin, recheck labs in AM 11/29 -labs continue to trend down -pt with Tmax 102.1 overnight, so will continue IV abx for now -e coli UTI -hopefully able to DC tomorrow if afebrile overnight -pt reports PICKENS with fentanyl; tolerating PO and nearing discharge, will give ibuprofen and/or [place] 5/325 PRN pain and see if pt tolerates that better -care to be turned over to Dr. Nieto for the weekend Chronic Conditions -resume home medications As pt remained with high fever of 102.1 overnight, will continue hospitalization and IV antibiotics for sepsis secondary to pyelonephritis. Anticipate pt will be ready for discharge in the next 24-48 hours; continue with current therapy until discharge goals outlined above are met Clinical Quality Measures DVT/VTE Risk/Contraindication: Risk Factor Score Per Nursin RFS Level Per Nursing on Admit: 3=High Copy Copies To 1: LAURE NIETO MD, MARGARET E DO Nov 29, 2017 08:26
--- NOTE | 2017-11-29 08:26 | Progress Note (SOAP) ---
Subjective Subjective/Events-last exam Late Entry from 11/28 Patient reports that she is very tired today, continues to have right flank pain and does not feel up to going home. Tmax of 100.7 overnight. Review of Systems Date Seen by Provider: Nov 28, 2017 Time Seen by Provider: 13:30 General: No Chills, No Night Sweats, Fatigue HEENT: No Head Aches, No Eye Pain, No Dysphasia Pulmonary: No Dyspnea, No Cough Cardiovascular: No: Chest Pain, Palpitations, Edema Gastrointestinal: No: Nausea, Vomiting, Abdominal Pain Genitourinary: No Dysuria, No Retention Musculoskeletal: back pain, No: neck pain Neurological: No: Weakness, Numbness, Incoordination, Change in speech, Confusion, Seizures Objective Exam Last Set of Vital Signs Vital Signs Date Time Temp Pulse Resp B/P (MAP) Pulse Ox O2 Delivery O2 Flow Rate FiO2 11/29/17 04:00 99.3 94 16 150/71 (97) 95 Room Air 11/27/17 06:49 2.00 Capillary Refill : Less Than 3 Seconds I&O Intake and Output 11/29/17 00:00 Intake Total 3720 ml Output Total 500 ml Balance 3220 ml Intake Oral 2720 ml IV Total 1000 ml Output Urine Total 500 ml # Voids 14 # Bowel Movements 6 General: Alert, Oriented X3, Cooperative, No Acute Distress HEENT: Atraumatic, EOMI, Mucous Memb Moist/[place] Neck: Supple, No Thyromegaly Lungs: Clear to Auscultation, Normal Air Movement Heart: Regular Rate, Normal S1, Normal S2, No Murmurs Abdomen: Normal Bowel Sounds, Soft, No Tenderness, No Hepatosplenomegaly Extremities: No Clubbing, No Cyanosis, No Edema Skin: No Rashes, No Breakdown, No Significant Lesion Neuro: Normal Speech, Normal Tone, Sensation Intact Psych/Mental Status: Mental Status NL, Mood NL Results/Procedures Lab Laboratory Tests 11/29/17 05:05: White Blood Count 11.0, Red Blood Count 3.89L, Hemoglobin 11.8, Hematocrit 35, Mean Corpuscular Volume 90, Mean Corpuscular Hemoglobin 30, Mean Corpuscular Hemoglobin Concent 34, Red Cell Distribution Width 14.5, Platelet Count 185, Mean Platelet Volume 11.5H, Neutrophils (%) (Auto) 82H, Lymphocytes (%) (Auto) 8L, Monocytes (%) (Auto) 8, Eosinophils (%) (Auto) 2, Basophils (%) (Auto) 0, Neutrophils # (Auto) 9.0H, Lymphocytes # (Auto) 0.9L, Monocytes # (Auto) 0.9, Eosinophils # (Auto) 0.2, Basophils # (Auto) 0.0, Sodium Level 135, Potassium Level 4.3, Chloride Level 108H, Carbon Dioxide Level 20L, Anion Gap 7, Blood Urea Nitrogen 17, Creatinine 0.84, Estimat Glomerular Filtration Rate > 60, BUN/ Creatinine Ratio 20, Glucose Level 130H, Calcium Level 9.2, Magnesium Level 1.9 , C-Reactive Protein High Sensitivity 13.26H Microbiology 11/26/17 Urine Culture - Final, Complete Escherichia coli Radiology CXR - negative chest CT Abd/Pelvis reviewed, radiology read pending Assessment/Plan Assessment/Plan Assessment & Plan Pyelonephritis -started on Rocephin, will receive second dose tonight -febrile overnight -renal function holding at the upper normal limit -will continue IV antibiotics for now and see how patient is doing in the AM -in order for discharge, she will need to demonstrate ability to tolerate good PO intake, remain afebrile for 24 hours, and show preserved renal function -recheck labs in AM 11/28 -pt febrile overnight -given that pt now has fever with tachycardia, elevated CRP and WBC and known UTI, does meet sepsis criteria -ADDED DIAGNOSIS: SEPSIS SECONDARY TO PYELONEPHRITIS -continue Rocephin, recheck labs in AM -renal function WNL, will give toradol 30 mg IVP Q6H x4 doses PRN pain in addition to fentanyl to see if that helps with back pain Chronic Conditions -resume home medications Continue hospitalization and IV antibiotics for sepsis secondary to pyelonephritis. Anticipate pt will be ready for discharge in the next 24-48 hours; continue with current therapy until discharge goals outlined above are met Clinical Quality Measures DVT/VTE Risk/Contraindication: Risk Factor Score Per Nursin RFS Level Per Nursing on Admit: 3=High Copy Copies To 1: LAURE ABAD MD, MARGARET E DO Nov 29, 2017 08:26
[2017-11-29] MEDS: LEVOTHYROXINE 150 MCG (LEVOTHROID) TAB PO SCH (09:12)
[2017-11-29 12:00] VITALS: BP 146/80
[2017-11-29 15:37] VITALS: BP 172/79
[2017-11-29] MEDS: TRIAMTERENE/HCTZ 75-50 (MAXZIDE,DYAZIDE) TABLET PO SCH (15:56)
[2017-11-29] MEDS ORDERED: IBUPROFEN 600 MG (MOTRIN) TAB PO PRN (18:00)
[2017-11-29 20:32] VITALS: BP 159/83
[2017-11-29] MEDS: LOSARTAN 50 MG (COZAAR) TAB PO SCH (20:40)
[2017-11-29] MEDS: ATENOLOL 50 MG (TENORMIN) TAB PO SCH (20:40)
[2017-11-29] MEDS: cefTRIAXone 1 GM/NS 100 ML IVPB IV SCH ×2 (20:40)
[2017-11-29] MEDS: SIMvastatin 20 MG (ZOCOR) TAB PO SCH (20:40)
[2017-11-30] VITALS: BP 181/89
[2017-11-30] MEDS: HYDROcodone/APAP 5 MG/325 MG (LORTAB) TAB PO PRN ×2 (00:07→06:30)
[2017-11-30 03:55] VITALS: BP 174/78
[2017-11-30] MEDS: NS W/KCL 20 MEQ/L 1,000 ML IV SCH (04:50)
[2017-11-30 05:34] LABS: BASOPHILS % (AUTO) 0 % (0-10); EOSINOPHILS # (AUTO) 0.4 10^3/uL (0.0-0.3); EOSINOPHILS % (AUTO) 5 % (0-10); HEMATOCRIT 35 % (35-52); HEMOGLOBIN 11.7 G/DL (11.5-16.0); LYMPHOCYTES # (AUTO) 1.2 X 10^3 (1.0-4.0); LYMPHOCYTES % (AUTO) 15 % (12-44); MEAN CORPUSCULAR HEMOGLOBIN 30 PG (25-34); MEAN CORPUSCULAR HGB CONC 33 G/DL (32-36); MEAN CORPUSCULAR VOLUME 90 FL (80-99); MEAN PLATELET VOLUME 10.9 FL (7.4-10.4); MONOCYTES # (AUTO) 0.7 X 10^3 (0.0-1.0); MONOCYTES % (AUTO) 10 % (0-12); NEUTROPHILS # (AUTO) 5.4 X 10^3 (1.8-7.8); NEUTROPHILS % (AUTO) 70 % (42-75); PLATELET COUNT 192 10^3/uL (130-400); RED BLOOD COUNT 3.91 10^6/uL (4.35-5.85); RED CELL DISTRIBUTION WIDTH 14.6 % (10.0-14.5); WHITE BLOOD COUNT 7.7 10^3/uL (4.3-11.0)
[2017-11-30 05:52] LABS: BUN/CREATININE RATIO 21; CALCIUM 9.4 MG/DL (8.5-10.1); CARBON DIOXIDE 21 MMOL/L (21-32); CHLORIDE 109 MMOL/L (98-107); CREATININE SERUM 0.81 MG/DL (0.60-1.30); GFR ESTIMATED > 60; GLUCOSE 116 MG/DL (70-105); MAGNESIUM 1.6 MG/DL (1.8-2.4); POTASSIUM 4.4 MMOL/L (3.6-5.0); SODIUM 137 MMOL/L (135-145)
[2017-11-30] MEDS: CATHETER FLUSH 10 ML SYR IV SCH (06:31)
[2017-11-30] MEDS: LEVOTHYROXINE 150 MCG (LEVOTHROID) TAB PO SCH (06:33)
[2017-11-30 08:47] VITALS: BP 185/105
--- NOTE | 2017-11-30 10:35 | Discharge Summary ---
Diagnosis/Chief Complaint Date of Admission Nov 26, 2017 at 23:55 Date of Discharge 11/30/2017 Admission Diagnosis Admission Diagnosis Pyelonephritis Left sided back pain HTN Discharge Diagnosis See Above Chief Complaint/HPI Chief Complaint/HPI 62 year old female who presented to ED last night with complaints of dysuria, chills and worsening back pain. She reports that her dysuria had started the day before, but she had tried to go to work; she works a shift at [employer] and then at [employer] until midnight, but became so uncomfortable while working her evening shift that she had to leave and brought herself to the ED. She was admitted for pyelonephritis and started on Rocephin. Overnight her temperature spiked up to 101.6. After being admitted to the floor, she did have a brief period of shortness of breath, and briefly had 2L NC O2. Her CXR was negative for any acute processes, her IV fluid rate was slowed to 100 cc/hr, and she began feeling better. 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 She also has a history of bladder cancer. At the time of exam the patient already reports she is feeling much better than when she was admitted. Discharge Summary-Simple/Stand Consultations Discharge Physical Examination Allergies: Coded Allergies: codeine (Verified Adverse Reaction, Severe, NAUSEA, 11/27/17) STATES MAKES HER VERY SICK TO HER STOMACH; N/V Vitals & I&Os Vital Sign - Last 12Hours Date Time Temp Pulse Resp B/P (MAP) Pulse Ox O2 Delivery O2 Flow Rate FiO2 11/30/17 08:47 98.3 75 18 185/105 (131) 94 Room Air 11/27/17 06:49 2.00 Intake and Output 11/30/17 00:00 Intake Total 2130 ml Balance 2130 ml General Appearance: Alert, Oriented X3, Cooperative, No Acute Distress HEENT: Mucous Memb Moist/[place] Respiratory: Clear to Auscultation, Normal Air Movement Cardiovascular: Regular Rate, No Murmurs Abdominal: Normal Bowel Sounds, Soft, No Tenderness, No Hepatosplenomegaly, No Masses Extremities: No Edema, No Tenderness/Swelling Neuro: Normal Gait, Normal Speech, Strength at 5/5 X4 Ext, Cranial Nerves 3-12 NL Psych/Mental Status: Mental Status NL, Mood NL Hospital Course See final discharge diagnosis. Radiology Reviewed CXR - negative chest CT Abd/Pelvis reviewed, radiology read pending Discussion & Recommendations 62 yo F with 1 kidney that was admitted for pyelonephritis. Vital signs during admission remained stable. She was started on IV Rocephin and oral pain medications. Urine cultures were gathered and returned and patient placed on PO Cipro to complete 7 day course. She will have close follow up with Dr Nieto in clinic Discharge Condition at discharge stable Instructions to patient/family Please see electronic discharge instructions given to patient. Discharge Medications Reviewed and agree with Discharge Medication list on patient's Discharge Instruction sheet Clinical Quality Measures DVT/VTE Risk/Contraindication: Risk Factor Score Per Nursin RFS Level Per Nursing on Admit: 3=High Copy Copies To 1: LAURE NIETO MD, HOLLY R MD Nov 30, 2017 10:35
[2017-11-30] MEDS ORDERED: ACHD5005 PO (10:39)
[2017-11-30] MEDS ORDERED: IBUP200C11 PO (10:39)
[2017-11-30] MEDS ORDERED: CIPR500T4 PO (10:39)
--- NOTE | 2017-11-30 10:42 | Discharge Instructions ---
Discharge Inst-[facility] Discharge Medications New, Converted or Re-Newed RX: Transmitted to Pharmacy (Pain med script on chart) New Medications: Ciprofloxacin HCl (Ciprofloxacin HCl) 500 Mg Tablet 500 MG PO BID for 7 Days, #14 TAB Hydrocodone Bit/Acetaminophen (Hydrocodone/Acetaminophen 5/325mg Tablet) 1 Tab Tab 1 TAB PO q6hr PRN for PAIN-MODERATE, #10 TAB Changed Medications: Ibuprofen (Advil) 200 Mg Capsule 600-800 MG PO TID PRN for PAIN-MILD for 30 Days, CAP (Medication details modified) Hold for 1 week Continued Medications: Atenolol (Atenolol) 50 Mg Tablet 50 MG PO HS, TAB Levothyroxine Sodium (Levothyroxine Sodium) 150 Mcg Tablet 150 MCG PO DAILY, TAB Losartan Potassium (Losartan Potassium) 50 Mg Tablet 50 MG PO HS, TAB Pravastatin Sodium (Pravastatin Sodium) 40 Mg Tablet 40 MG PO HS, TAB Triamterene/Hydrochlorothiazid (Triamterene-Hctz 75-50 mg Tab) 1 Each Tablet 1 TAB PO HS, TAB Patient Instructions Goal/Follow Up Appt: Heather will call you to get you an appt with Dr Nieto for Hospital f/u Patient Instructions: - Push hydration - It is very important that you complete your antiboitics Return to The Hospital For: - Worsening pain or fever after medication Activity & Diet Discharge Diet: Cardiac Diet Activity as Tolerated: Yes Copy Copies To 1: LAURE NIETO MD, HOLLY R MD Nov 30, 2017 10:42
== END 2017-11-30 11:05 | disposition home or self-care (01) ==
LOC: EDUNIT# 21:57 → ER 21:59 → 4TH 23:55
PROVIDERS: ADMIT Family Medicine; ATTEND Family Medicine
DX: A41.9 Sepsis, unspecified organism (principal); N12 Tubulo-interstitial nephritis, not specified as acute or chronic; E03.9 Hypothyroidism, unspecified; I10 Essential (primary) hypertension; E78.5 Hyperlipidemia, unspecified; F41.9 Anxiety disorder, unspecified; Z85.51 Personal history of malignant neoplasm of bladder; Z88.5 Allergy status to narcotic agent; F17.210 Nicotine dependence, cigarettes, uncomplicated; Z79.899 Other long term (current) drug therapy
CPT/HCPCS: 36415; 71045; 74176; 80048; 80053; 81000; 83735; 85007; 85025; 85027; 86141; 87088; 87186; 96361; 96365; 96375; G0378

== ENCOUNTER → 2019-03-19 | Outpatient (CLI) | payer BC ==
[~2019-03-19] MED LIST changes: +ACET1TAB43 PO; +ACHD5005 PO; +CIPR500T4 PO; +CLON0.5T13 PO; -CLON0.5T3 PO; +GADOBUTROL 7.5 MMOL/7.5 ML (GADAVIST) VIAL IV ONE; +IBUP200C11 PO; +LEVO150T6 PO; -LOSA50TA36 PO; +LOSA50TA63 PO; +PRAV40TA2 PO; +TRIA1TAB5 PO
--- NOTE | 2019-03-19 10:44 | Diagnostic Imaging Report ---
PROCEDURE: MR imaging of the brain without contrast. TECHNIQUE: Multiplanar, multisequence MR imaging of the brain was performed without contrast. INDICATION: Mood disorder and psychosis. No prior studies are available for comparison. FINDINGS: Ventricles and sulci are within normal limits. No diffusion restriction is seen to suggest acute ischemia. The normal expected flow-voids within the carotid siphons are seen. No acute intra-axial or extra-axial hemorrhage is identified. Cisterns are patent. IMPRESSION: No acute intracranial process is detected. Dictated by: Dictated on workstation # [id number]
== END ==
LOC: RAD 08:05
PROVIDERS: ATTEND Family Medicine
DX: F39 Unspecified mood [affective] disorder (principal); F29 Unspecified psychosis not due to a substance or known physiological condition
CPT/HCPCS: 70551

== ENCOUNTER 2019-12-09 05:42 | Outpatient (CLI) | payer BC ==
[~2019-12-09] VITALS: Ht 172.7 cm; Wt 86.4 kg
[~2019-12-09 05:42] MED LIST changes: -CLON0.5T13 PO; +CLON0.5T4 PO; -GADOBUTROL 7.5 MMOL/7.5 ML (GADAVIST) VIAL IV ONE
== END 2019-12-09 13:23 ==
LOC: PREOP 05:42
PROVIDERS: ATTEND Urology
DX: Z01.818 Encounter for other preprocedural examination (principal)

== ENCOUNTER 2019-12-16 06:47 | Day surgery (SDC) | payer BC ==
[~2019-12-16] VITALS: Ht 173 cm; Wt 86.4 kg
[2019-12-16] VITALS (9 sets, daily range): BP systolic 108–147; BP diastolic 63–81
[2019-12-16] MEDS ORDERED: LACTATED RINGERS 1,000 ML IV PRN (06:57)
[2019-12-16] MEDS ORDERED: cefTRIAXone FOR IV USE 1,000 MG in WATER (STERILE) FOR INJECTION 10 ML IV ONE (07:00)
--- NOTE | 2019-12-16 07:13 | Progress Note-Pre Operative ---
Pre-Operative Progress Note H&P Reviewed The H&P was reviewed, patient examined and no changes noted. Date Seen by Provider: Dec 16, 2019 Time Seen by Provider: 07:12 Date H&P Reviewed: Dec 16, 2019 Time H&P Reviewed: 07:12 Pre-Operative Diagnosis: MULTIPLE BLADDER TUMORS, ONE MEDIUM ERICK CORRAL MD Dec 16, 2019 07:13
[2019-12-16] MEDS ORDERED: CATHETER FLUSH 10 ML SYR IV PRN (07:15)
[2019-12-16] MEDS ORDERED: MIDAZOLAM 2 MG/2 ML (VERSED) VIAL ONE (07:19)
[2019-12-16] MEDS ORDERED: fentaNYL INJECTION 100 MCG/2 ML AMP ONE (07:20)
[2019-12-16] MEDS ORDERED: ONDANSETRON 4 MG/2 ML (SDV) Z0FRAN ONE (07:51)
[2019-12-16] MEDS ORDERED: LIDOCAINE PF 2% 5 ML (XYLOCAINE) VIAL ONE (07:51)
[2019-12-16] MEDS ORDERED: SEVOFLURANE (ULTANE) 15 ML INHAL SOLN ONE (07:51)
[2019-12-16] MEDS ORDERED: proPOfol 200 MG/20 ML (DIPRIVAN) VIAL IV ONE (07:51)
--- NOTE | 2019-12-16 08:10 | Progress Note-Post Operative ---
Post-Operative Progess Note Surgeon (s)/Shagger (s) Surgeon ERICK CORRAL MD Shagger: NONE Pre-Operative Diagnosis MULTIPLE BLADDER TUMORS, ONE MEDIUM Post-Operative Diagnosis SAME Procedure & Operative Findings Date of Procedure 12/16/19 Procedure Performed/Findings TURBT'S Anesthesia Type GENERAL Estimated Blood Loss Estimated blood loss (mL): NEGLIGIBLE Specimens/Packing Specimens Removed BLADDER TUMOR CHIPS, BASE OF BT POSTERIOR WALL, AND BASE OB BT LT LATERAL WALL Packing: NONE ERICK CORRAL MD Dec 16, 2019 08:10
--- NOTE | 2019-12-16 08:12 | Discharge Inst-Urology ---
Discharge Inst-Urology Reconcile Patient Problems Problems Reviewed?: Yes Final Diagnosis MULTIPLE BLADDER TUMORS Patient Instructions/Follow Up Plan/Assessment/Instructions Please make appointment to been seen in office in 2 weeks. Increase oral fluids for 48 hours and then as needed. Diet and Activity as tolerated. If questions or concerns contact your physician Or seek help at emergency department. ERICK CORRAL MD Dec 16, 2019 08:12
--- NOTE | 2019-12-16 08:16 | Anesthesia-General Post-Op ---
General Patient Condition Mental Status/LOC: Same as Preop Cardiovascular: Satisfactory Nausea/Vomiting: Absent Respiratory: Satisfactory Pain: Controlled Complications: Absent Post Op Complications Complications None Follow Up Care/Instructions Patient Instructions None needed. Anesthesia/Patient Condition Patient Condition Patient is doing well, no complaints, stable vital signs, no apparent adverse anesthesia problems. No complications reported per nursing. WILLIE JENKINS CRNA Dec 16, 2019 08:16
[2019-12-16] MEDS ORDERED: morphine INJ 10 MG/ML 1ML (SYR OR VIAL) ONE (08:24)
[2019-12-16] MEDS ORDERED: ONDANSETRON 4 MG/2 ML (SDV) Z0FRAN IVP PRN (08:30)
[2019-12-16] MEDS ORDERED: morphine INJ 10 MG/ML 1ML (SYR OR VIAL) IVP ONE (08:30)
[2019-12-16] MEDS ORDERED: fentaNYL INJECTION 100 MCG/2 ML AMP IVP ONE (08:30)
[2019-12-16] MEDS ORDERED: PHEN-640 PO (08:55)
[2019-12-16] MEDS ORDERED: NITR-65 PO (08:55)
[2019-12-16] MEDS ORDERED: HYOS0.1281 PO (08:55)
[2019-12-16] MEDS ORDERED: PHENAZOPYRIDINE 100 MG (PYRIDIUM) TABLET ONE (09:00)
[2019-12-16] MEDS ORDERED: KETOROLAC 30 MG/ML VIAL ONE (09:07)
[2019-12-16] MEDS ORDERED: PHENAZOPYRIDINE 100 MG (PYRIDIUM) TABLET PO ONE (09:15)
[2019-12-16] MEDS ORDERED: KETOROLAC 30 MG/ML VIAL IVP ONE ×2 (09:15)
[2019-12-16] MEDS ORDERED: HYDR-83 PO (09:27)
--- NOTE | 2019-12-16 09:50 | OPERATIVE REPORT ---
DATE OF SERVICE: 12/16/2019 PREOPERATIVE DIAGNOSIS: Multiple bladder tumor posterior wall and left lateral rajan one medium. POSTOPERATIVE DIAGNOSIS: Multiple bladder tumor posterior wall and left lateral rajan one medium. OPERATION PERFORMED: Transurethral resection of bladder tumor. SURGEON: Ricardo Corral MD. ANESTHESIA: General. COMPLICATIONS: None. DESCRIPTION OF PROCEDURE: Under satisfactory general anesthesia, the patient in the lithotomy position, genitalia were prepped and draped in the usual sterile fashion. Resectoscope was introduced in the bladder. Again, visualized a small bladder tumor just above and lateral to the left ureteral orifice very superficial and another one on the posterior area and lateral wall on the left side. They were all resected completely including the medium one. Then, a bite from the base of the tumors on the left side were sent separately. Bleeders were cauterized and hemostasis was complete and resection as well. There was no further bladder tumor visualized. Ureteric orifices with clear effluxes on both sides. Bladder was evacuated and the resectoscope was removed. The patient tolerated the procedure and anesthesia well and was sent to recovery room in stable condition. We will start her on mitomycin C instillation to prevent recurrence of the tumor. Job ID: [id number] DocumentID: [id number] Dictated Date: 12/16/2019 08:18:33 Rope Cleaner Date: 12/16/2019 09:50:02 Dictated By: RICARDO CORRAL MD
== END 2019-12-16 09:50 | disposition home or self-care (01) ==
LOC: SDC 06:47
PROVIDERS: ATTEND Urology
DX: C67.4 Malignant neoplasm of posterior wall of bladder (principal); C67.2 Malignant neoplasm of lateral wall of bladder; Z11.2 Encounter for screening for other bacterial diseases; N32.81 Overactive bladder; I10 Essential (primary) hypertension; I25.10 Atherosclerotic heart disease of native coronary artery without angina pectoris; E11.9 Type 2 diabetes mellitus without complications; E03.9 Hypothyroidism, unspecified; F41.9 Anxiety disorder, unspecified; F17.210 Nicotine dependence, cigarettes, uncomplicated; Z79.899 Other long term (current) drug therapy; Z87.442 Personal history of urinary calculi
CPT/HCPCS: 87081; 88307

== ENCOUNTER → 2020-02-16 | Outpatient (CLI) | payer BC ==
[~2020-02-16] MED LIST changes: +HYDR-83 PO; +HYOS0.1281 PO; +NITR-65 PO
--- NOTE | 2020-02-16 14:30 | Diagnostic Imaging Report ---
INDICATION: Routine screening. COMPARISON: No prior mammograms are available for comparison. TECHNIQUE: 2D and 3D bilateral screening mammography was performed with CAD. FINDINGS: Scattered fibroglandular densities are identified bilaterally. There are benign calcifications scattered throughout both breasts. No dominant mass or malignant appearing microcalcifications are seen. The axillae are unremarkable. IMPRESSION: No mammographic features suspicious for malignancy are identified. ACR BI-RADS Category 2: Benign findings. Result letter will be mailed to the patient. Note: At least 10% of breast cancer is not imaged by mammography. Dictated by: Dictated on workstation # [id number]
== END ==
LOC: RAD 10:43
PROVIDERS: ATTEND Family Medicine
DX: Z12.31 Encounter for screening mammogram for malignant neoplasm of breast (principal)
CPT/HCPCS: 77063; 77067

== ENCOUNTER → 2023-05-14 | Outpatient (CLI) | payer BC ==
[~2023-05-14] MED LIST changes: +ACET-11 PO; -ACET1TAB43 PO; -CIPR500T4 PO; +CIPR500T5 PO; -HYDR-83 PO
--- NOTE | 2023-05-14 14:14 | Diagnostic Imaging Report ---
INDICATION: Postmenopausal state, screening for osteoporosis. COMPARISON: None available. FINDINGS: AP Spine L2-L4: [BMD (g/cm2): 1.306] [T-Score: 0.9] [Z-Score: 1.7] [BMD Previous: NA] [BMD % Change: NA] LT Hip Neck: [BMD (g/cm2): 0.800] [T-Score: -1.7] [Z-Score: -0.7] LT Hip Total: [BMD (g/cm2):0.882] [T-Score:-1.0] [Z-Score: -0.3] [BMD Previous: NA] [BMD % Change: NA] RT Hip Neck: [BMD (g/cm2):0.885] [T-Score:-1.1] [Z-Score:-0.1] RT Hip Total: [BMD (g/cm2):0.918] [T-score:-0.7] [Z-Score:0.0] [BMD Previous:NA] [BMD % Change:NA] *Indicates significant change from prior examination based on 95% confidence level. World Health Organization criteria for BMD interpretation classify patients as Normal (T-score at or above -1.0), Osteopenic (T-score between -1.0 and -2.5) or Osteoporotic (T-score at or below -2.5). LIMITATIONS AND MODIFICATION: None. FRACTURE RISK (FRAX SCORE): The ten year probability of (%): Major Osteoporotic Fracture: [9.7] Hip Fracture: [1.3] IMPRESSION: 1. Osteopenia (Low bone mass). 2. Baseline examination. 3. See below National Osteoporosis Foundation guidelines on when to potentially initiate pharmacologic therapy. Based on the National Osteoporosis Foundation Guidelines, pharmacologic treatment should be initiated in any of the following, unless clinical conditions suggest otherwise: * Any patient with prior fragility fracture of the hip or vertebrae. A spine fracture indicates 5X risk for subsequent spine fracture and 2X risk for subsequent hip fracture. * Osteoporosis (T-score <-2.5). * Postmenopausal women and men age 50 and older with low bone mass/osteopenia (T-score between -1.0 and -2.5) by DXA and 10-year major osteoporotic fracture greater than 20% or a 10-year probability of hip fracture greater than 3%. These fracture risks are supplied above in the FRAX score, if applicable. * Clinician judgement and/or patient preferences may indicate treatment for people with 10-year fracture probabilities above or below these levels. Dictated by: Dictated on workstation # [id number]
--- NOTE | 2023-05-14 15:27 | Diagnostic Imaging Report ---
INDICATION: Routine screening. COMPARISON: 02/16/2020. TECHNIQUE: 2D and 3D bilateral screening mammography was performed with CAD. FINDINGS: Scattered fibroglandular densities are identified bilaterally. The parenchymal pattern is stable. Scattered benign calcifications are noted bilaterally. No dominant mass or malignant appearing microcalcification are seen. The axillae are unremarkable. IMPRESSION: No mammographic features suspicious for malignancy are identified. ACR BI-RADS Category 2: Benign findings. Result letter will be mailed to the patient. Note: At least 10% of breast cancer is not imaged by mammography. Dictated by: Dictated on workstation # [id number]
== END ==
LOC: RAD 11:15
PROVIDERS: ATTEND Family Medicine
DX: Z12.31 Encounter for screening mammogram for malignant neoplasm of breast (principal); Z13.820 Encounter for screening for osteoporosis; M85.852 Other specified disorders of bone density and structure, left thigh; M85.851 Other specified disorders of bone density and structure, right thigh
CPT/HCPCS: 77063; 77067; 77080